=== PATIENT | male | born 1985 | race Hispanic/Latino ===

== ENCOUNTER 2020-01-19 13:27 | Emergency (ER) | payer SELFPAY ==
[~2020-01-19] VITALS: Ht 167.6 cm; Wt 89.0 kg
[2020-01-19] MEDS ORDERED: FLEXERIL PO (14:40)
[2020-01-19] MEDS ORDERED: IBUPROFEN600 MG PO (14:40)
[2020-01-19 15:15] VITALS: BP 124/84
== END 2020-01-19 15:20 | disposition home or self-care (01) | DRG 563 ==
LOC: ED 13:27
DX: S39.012A Strain of muscle, fascia and tendon of lower back, initial encounter (principal); X50.0XXA Overexertion from strenuous movement or load, initial encounter